=== PATIENT | female | born 1995 | race Caucasian/White ===

== ENCOUNTER 2021-09-30 12:30 | Emergency (ER) | payer BC, SELFPAY ==
[2021-09-30 12:41] VITALS: BP 122/57; PULSE 100; RESP 18; TEMP 36.6; O2SAT 98; BMI 43.0
--- NOTE | 2021-09-30 12:43 | DI.RAD.S_ITS ---
PROCEDURE: XR ELBOW RT MIN 3V INDICATIONS: fall right elbow pain TECHNIQUE: 3 views of the elbow were acquired. COMPARISON: None. FINDINGS: Bones: No fractures or dislocations. No suspicious bony lesions. Soft tissues: No elbow joint effusion. No suspicious soft tissue calcifications. IMPRESSION: Unremarkable right elbow radiographs Approved by: Leland Zuniga M.D. on 09/30/2021 at 12:04
--- NOTE | 2021-09-30 15:06 | ED.UPPEXIN ---
HPI - Extremity Injury (Upper) General Chief Complaint: Extremity Injury, Upper Stated Complaint: Right elbow injury yesterday Time Seen by Provider: 09/30/21 15:03 Source: patient Mode of arrival: Ambulatory History of Present Illness HPI narrative: Patient is a healthy 26-year-old female who presents with right elbow pain. She says that she hit on a door couple days ago. She has had some numbness and tingling in her ulnar nerve distribution of her 3rd 4th and 5th fingers. She has is able to flex and extend her arm. She has been doing ice and ibuprofen. I was a little bit better yesterday and then today it started up again she just wanted make sure that it is not broken. She denies any weakness in her hand. Related Data Allergies Allergy/AdvReac Type Severity Reaction Status Date / Time No Known Drug Allergies Allergy Verified 09/30/21 12:42 Review of Systems Review of Systems Narrative: GENERAL: Denies chills,fever HEENT: Denies throat pain RESPIRATORY: Denies dyspnea, cough, wheezing CARDIOVASCULAR: Denies chest pain, palpitations GASTROINTESTINAL: Denies nausea, vomiting MUSCULOSKELETAL: See HPI SKIN: No rash, no laceration, no pruritus NEUROLOGIC: Numbness tingling and ulnar nerve see HPI 8 point review of systems is negative except for those stated above and HPI Patient History tobacco type: vaping alcohol intake frequency: 3 or more drinks per day Substance Use Type: marijuana and crack/cocaine Exam Initial Vital Signs Initial Vital Signs: Vital Signs Temperature 98 F 09/30/21 12:41 Pulse Rate 100 H 09/30/21 12:41 Respiratory Rate 18 09/30/21 12:41 Blood Pressure 122/57 L 09/30/21 12:41 Pulse Oximetry 98 09/30/21 12:41 GENERAL: Alert well-appearing 26-year-old female CARDIOVASCULAR: peripheral pulses in tact, cap refill <2 sec RESPIRATORY: No respiratory distress, speaks in full sentences without difficulty EXTREMITIES: Normal range of motion, no clubbing or edema. Neurovascularly intact Right upper extremity he tender and olecranon on ulnar nerve. Hand good sensation/motor in radial median ulnar nerve distribution NEUROLOGICAL: Cranial nerves II through XII grossly intact. Normal gait and speech. SKIN: Warm, dry, no petechiae, no rashes or lesions. Course Orders Ordered: ED Orders 09/30/21 12:43 XR elbow RT min 3V Stat Vital Signs Vital signs: Vital Signs - 8 hr 09/30/21 12:41 Temperature 98 F Pulse Rate 100 H Respiratory Rate 18 Blood Pressure 122/57 L Pulse Oximetry 98 MDM - Extremity Injury (Upper) Imaging Data Extremity x-ray #1: Radiologist's Impression: Signed Patient: Dania Hinds MR#: [id number] : 1995 Acct:[id number] Age/Sex: 26 / F Date of Service: 09/30/21 Loc: ED Accession Number: [id number] ?? Procedure: XR elbow RT min 3V Ordering Provider: Rosio Barrow MD PROCEDURE:? XR ELBOW RT MIN 3V ? INDICATIONS:? fall right elbow pain ? TECHNIQUE:? 3 views of the elbow were acquired.? ? COMPARISON:? None. ? FINDINGS:? ? Bones:? No fractures or dislocations.? No suspicious bony lesions.? ? Soft tissues:? No elbow joint effusion.? No suspicious soft tissue calcifications.? ? ? IMPRESSION:? Unremarkable right elbow radiographs ? ? ? Approved by: Leland Zuniga M.D. on 09/30/2021 at 12:04? Discharge Plan Departure Patient Disposition: Home Clinical Impression: Ulnar nerve injury Instructions: Peripheral Neuropathy Activity Restrictions/Additional Instructions: *You have been diagnosed with ulnar nerve injury *What to do: At this time he may wear your sling however please be sure to take it out and move his shoulder and elbow multiple times a day. Elevate and ice. I anticipate this gets better with time. *Continue to take medications as directed Ibuprofen 600 mg every 6-8 hours if needed for [id number] pain *Follow up with your primary care provider in 2-3 days or call [phone] *Return to ER if you should have increasing pain weakness numbness tingling or any new, worsening or concerning symptoms
== END 2021-09-30 15:24 | disposition home or self-care (01) ==
PROVIDERS: Emergency Provider Emergency Medicine
DX: S44.01XA Injury of ulnar nerve at upper arm level, right arm, initial encounter (principal); W22.8XXA Striking against or struck by other objects, initial encounter
CPT/HCPCS: 73080; 99283

== ENCOUNTER 2021-10-24 10:57 | Emergency (ER) | payer BC, SELFPAY ==
[2021-10-24] VITALS (11 sets, daily range): BP systolic 134–147; BP diastolic 79–87; PULSE 95–115; RESP 16–31; TEMP 36.4; O2SAT 92–98; BMI 50.3
--- NOTE | 2021-10-24 11:04 | DI.RAD.S_ITS ---
PROCEDURE: XR CHEST 1V INDICATIONS: chest pain TECHNIQUE: One view of the chest was acquired. COMPARISON: None. FINDINGS: Surgical changes and devices: None. Lungs and pleura: Lungs are clear. No pleural effusions or pneumothorax. Mediastinum: Mediastinal contours appear normal. Heart size is normal. Bones and chest wall: No suspicious bony lesions. Overlying soft tissues appear unremarkable. Metallic foci can be seen overlying the patient. IMPRESSION: Portable chest within normal limits. Dictated by: Nishant Carlos M.D. on 10/24/2021 at 10:37 Approved by: Nishant Carlos M.D. on 10/24/2021 at 10:39
--- NOTE | 2021-10-24 11:26 | PC.NURSE ---
Pt reports SOB since 1630 yesterday. 96% on RA, RR of 32. Wheezes heard bilateral on upper lobes during exhalation. Reports recent cocaine and alcohol use. Also states, I left my menstrual disc in for over 24hrs. She reports some dizzy spells, fatigue, and chest pain. Prior tx include epi, albuterol and a steroid that were my friends.
[2021-10-24 11:28] LABS: COVID19 -Nasal RAPID Negative (Negative)
[2021-10-24 11:55] LABS: Add Manual Diff / Slide Review NO; Basophils Absolute Auto 100 /uL (0-100); Basophils Percent Auto 0.5 % (0-2); Eosinophils Absolute Auto 500 /uL (0-450); Eosinophils Percent Auto 5.2 % (2-4); Hemoglobin 13.4 g/dL (12.0-16.0); Lymphocytes Absolute Auto 1500 /uL (1100-4500); Lymphocytes Percent Auto 15.5 % (25-40); Mean Corpuscular HGB Conc 35.2 % (30-36); Mean Corpuscular Hemoglobin 30.3 PG (26-34); Mean Corpuscular Volume 86.2 fL (80-100); Monocytes Absolute Auto 700 /uL (0-900); Monocytes Percent Auto 7.6 % (3-14); Neutrophils Absolute Auto 6900 /uL (1500-7000); Neutrophils Percent Auto 71.2 % (50-75); Platelet Count 223 X10^3/uL (150-400); Red Blood Cell Count 4.41 X10^6/uL (4.0-5.2); Red Cell Distribution Width 12.8 % (11.6-14.8); White Blood Cell Count 9.7 X10^3/uL (4.5-11.0)
[2021-10-24 12:06] LABS: INR 1.2 (0.9-1.3); Prothrombin Time 13.3 SECONDS (10.1-12.7)
[2021-10-24 12:08] LABS: PTT Partial Thromboplastin Tim 30 SECONDS (26.4-36.2)
[2021-10-24 12:13] LABS: Alanine Aminotransferase 18 IU/L (<35); Albumin 4.3 g/dL (3.5-5.0); Albumin Globulin Ratio 1.4 (1.0-2.8); Alkaline Phosphatase 42 U/L (38-126); Aspartate Aminotransferase 23 IU/L (14-36); Bilirubin Total 0.9 mg/dL (0.2-1.3); Blood Urea Nitrogen 13 mg/dL (7-17); Carbon Dioxide 27 mmol/L (22-32); Chloride 103 mmol/L (98-107); Creatine Kinase 33 U/L (30-135); Estimated Glomerular Filt Rate > 60 mL/min (>60); Globulin 3.1 g/dL (1.7-4.1); Glucose 103 mg/dL (70-100); HEMOLYSIS < 15 (0-50); Lipase 51 U/L (23-300); Magnesium 1.9 mg/dL (1.6-2.3); Potassium 3.1 mmol/L (3.4-5.1); Sodium 139 mmol/L (137-145); Total Protein 7.4 g/dL (6.3-8.2)
--- NOTE | 2021-10-24 12:22 | ED_ITS ---
HPI - SOB/Dyspnea <DEBBI Guzman - Last Filed: 10/24/21 15:51> General Chief Complaint: Shortness of Breath/Dyspnea Stated Complaint: SOB x 2 days Time Seen by Provider: 10/24/21 12:06 Source: patient Mode of arrival: Ambulatory Limitations: no limitations History of Present Illness HPI Narrative: This is a 26-year-old female who presents to the emergency department complaining of shortness of breath, chest tightness after smoking meth and cocaine for the last few days. Patient states her last use was yesterday, she states she also injects meth but has not since yesterday. Patient denies any history of asthma, states that she has a history of frequent bronchitis and feels like she is wheezing. She denies fever but endorses chills. Patient endorses three days of dysuria, abnormal vaginal discharge, pelvic pressure and she states she not intercourse for three months or more. She states her last menses just finished. She denies any history of diabetes, denies any blood in her urine, endorses normal bowel movements recently. Related Data Previous Rx's Medication Instructions Recorded albuterol sulfate 90 mcg/actuation 1 inh INHALATION QID PRN #6.7 g 10/24/21 aerosol inhaler cephalexin 500 mg capsule 500 mg PO BID 5 Days #10 cap 10/24/21 hydroxyzine HCl 25 mg tablet 25 mg PO BID PRN #14 tab 10/24/21 inhalational spacing device (Khari #1 ea 10/24/21 Aerosol [place] Enhancer) metronidazole 500 mg tablet 500 mg PO BID 7 Days #14 tab 10/24/21 prednisone 20 mg tablet 40 mg PO DAILY 5 Days #10 tab 10/24/21 Allergies Allergy/AdvReac Type Severity Reaction Status Date / Time No Known Drug Allergies Allergy Verified 10/24/21 11:05 Review of Systems <DEBBI Guzman - Last Filed: 10/24/21 15:51> Review of Systems Narrative: General: denies fever, chills Head/Neck: denies headache, neck pain Eyes: denies visual changes, eye pain Cardio: denies chest pain, palpitations Respiratory: Endorses shortness of breath, cough and chest tightness GI: denies abdominal pain, nausea, vomiting, or diarrhea : Endorses dysuria, denies hematuria or flank pain MSK: denies new joint pain, muscle weakness or swelling Skin: denies rash, itching or wound Neuro: denies numbness, tingling, dizziness Patient History <DEBBI Guzman - Last Filed: 10/24/21 15:51> tobacco type: vaping alcohol intake frequency: 3 or more drinks per day Substance Use Type: marijuana and crack/cocaine Exam <DEBBI Guzman - Last Filed: 10/24/21 15:51> Narrative Exam Narrative: Independently reviewed vitals signs and nursing notes. General: cooperative, comfortable, in no acute distress, well groomed Head: atraumatic, symmetrical facial expressions Neck: supple Eyes: equal round and reactive, EOMI, conjunctiva normal Nose: nares patent, no rhinorrhea Mouth/Throat: moist mucus membranes Cardiovascular: regular rate and rhythm, no peripheral edema, warm extremities Respiratory: normal effort, inspiratory and expiratory wheezes, able to speak in complete sentences, nostridor, or rales. No retractions or tachypnea. GI: abdomen soft, nontender to palpation, nondistended, no masses, no exquisite tenderness with exam, without guarding or rebound. MSK: moves all extremities, neurovascularly intact, no weakness, normal tone Skin: brisk capillary refill, no rash, no erythema Neuro: normal speech and cognition, A&O x3 Psych: mental status is grossly normal, congruent mood, normal affect, pleasant and cooperative Initial Vital Signs Initial Vital Signs: Vital Signs Temperature 97.6 F 10/24/21 11:00 Pulse Rate 115 H 10/24/21 11:00 Respiratory Rate 18 10/24/21 11:00 Blood Pressure 141/87 H 10/24/21 11:00 Pulse Oximetry 96 10/24/21 11:00 <Natalie Dickson DO - Last Filed: 10/24/21 18:38> Initial Vital Signs Initial Vital Signs: Vital Signs Temperature 97.6 F 10/24/21 11:00 Pulse Rate 115 H 10/24/21 11:00 Respiratory Rate 18 10/24/21 11:00 Blood Pressure 141/87 H 10/24/21 11:00 Pulse Oximetry 96 10/24/21 11:00 Course <DEBBI Guzman - Last Filed: 10/24/21 15:51> Orders Ordered: ED Orders 10/24/21 11:04 XR chest 1V Stat EKG-12 Lead Stat 10/24/21 11:08 COVID19 -Nasal RAPID/Pre-Proc Stat 10/24/21 11:38 BNP [NT-proBNP (BNP-Adult 18+)] Stat Complete Blood Count AUTO DIFF Stat Comprehensive Metabolic Panel Stat Lipase Stat Magnesium Stat Partial Thromboplastin Time Stat Prothrombin Time INR Stat Troponin & CK Cardiac Panel Stat 10/24/21 12:24 RT Consult Eval and Treat NOW 10/24/21 12:45 Chlamydia Gonorrhea PCR -URINE Stat Ictotest Urine Stat Test Urine Stat Urine Microscopic Stat 10/24/21 13:03 Wet Prep Tric BV Veronica Stat Discontinued Medications Albuterol (Albuterol 2.5 Mg/3 Ml Neb (Adult)) 2.5 mg INH NOW ONE Stop: 10/24/21 12:57 Last Admin: 10/24/21 13:07 Dose: 2.5 mg Documented by: OBI Albuterol/Ipratropium (Albuterol/Ipratropium 3 Ml Ampul) 3 ml INH NOW ONE Stop: 10/24/21 12:19 Last Admin: 10/24/21 12:31 Dose: 3 ml Documented by: KAIN Hydroxyzine Pamoate (Hydroxyzine Pamoate 25 Mg Capsule) 25 mg PO NOW ONE Stop: 10/24/21 12:28 Last Admin: 10/24/21 13:10 Dose: 25 mg Documented by: KAIN Ketorolac Tromethamine (Ketorolac 30 Mg/Ml Vial) 15 mg IM NOW ONE Stop: 10/24/21 13:04 Last Admin: 10/24/21 13:10 Dose: 15 mg Documented by: KAIN Pantoprazole Sodium (Pantoprazole Dr 20 Mg Tablet) 20 mg PO NOW ONE Stop: 10/24/21 13:05 Last Admin: 10/24/21 13:10 Dose: 20 mg Documented by: KAIN Potassium Chloride (Potassium Chloride 20 Meq/15 Ml Udc) 40 meq PO NOW ONE Stop: 10/24/21 12:40 Last Admin: 10/24/21 13:11 Dose: 40 meq Documented by: KAIN Prednisone (Prednisone 20 Mg Tablet) 50 mg PO NOW ONE Stop: 10/24/21 12:19 Last Admin: 10/24/21 12:30 Dose: 50 mg Documented by: KAIN Vital Signs Vital signs: Vital Signs - 8 hr 10/24/21 11:00 10/24/21 11:06 10/24/21 11:30 Temperature 97.6 F Pulse Rate 115 H 111 H 99 H Respiratory Rate 18 31 H Blood Pressure 141/87 H Pulse Oximetry 96 98 97 10/24/21 12:00 10/24/21 12:24 10/24/21 12:30 Temperature Pulse Rate 97 H 95 H Respiratory Rate 22 24 Blood Pressure 145/79 H 147/79 H Pulse Oximetry 94 92 10/24/21 12:31 10/24/21 13:09 10/24/21 13:22 Temperature Pulse Rate 103 H Respiratory Rate Blood Pressure Pulse Oximetry 96 97 10/24/21 13:23 10/24/21 13:30 Temperature Pulse Rate 104 H 97 H Respiratory Rate 16 Blood Pressure 134/86 Pulse Oximetry <Natalie Dickson DO - Last Filed: 10/24/21 18:38> Orders Ordered: ED Orders 10/24/21 11:04 XR chest 1V Stat EKG-12 Lead Stat 10/24/21 11:08 COVID19 -Nasal RAPID/Pre-Proc Stat 10/24/21 11:38 BNP [NT-proBNP (BNP-Adult 18+)] Stat Complete Blood Count AUTO DIFF Stat Comprehensive Metabolic Panel Stat Lipase Stat Magnesium Stat Partial Thromboplastin Time Stat Prothrombin Time INR Stat Troponin & CK Cardiac Panel Stat 10/24/21 12:24 RT Consult Eval and Treat NOW 10/24/21 12:45 Chlamydia Gonorrhea PCR -URINE Stat Ictotest Urine Stat Test Urine Stat Urine Microscopic Stat 10/24/21 13:03 Wet Prep Tric BV Veronica Stat Discontinued Medications Albuterol (Albuterol 2.5 Mg/3 Ml Neb (Adult)) 2.5 mg INH NOW ONE Stop: 10/24/21 12:57 Last Admin: 10/24/21 13:07 Dose: 2.5 mg Documented by: OBI Albuterol/Ipratropium (Albuterol/Ipratropium 3 Ml Ampul) 3 ml INH NOW ONE Stop: 10/24/21 12:19 Last Admin: 10/24/21 12:31 Dose: 3 ml Documented by: KAIN Hydroxyzine Pamoate (Hydroxyzine Pamoate 25 Mg Capsule) 25 mg PO NOW ONE Stop: 10/24/21 12:28 Last Admin: 10/24/21 13:10 Dose: 25 mg Documented by: KAIN Ketorolac Tromethamine (Ketorolac 30 Mg/Ml Vial) 15 mg IM NOW ONE Stop: 10/24/21 13:04 Last Admin: 10/24/21 13:10 Dose: 15 mg Documented by: KAIN Pantoprazole Sodium (Pantoprazole Dr 20 Mg Tablet) 20 mg PO NOW ONE Stop: 10/24/21 13:05 Last Admin: 10/24/21 13:10 Dose: 20 mg Documented by: KAIN Potassium Chloride (Potassium Chloride 20 Meq/15 Ml Udc) 40 meq PO NOW ONE Stop: 10/24/21 12:40 Last Admin: 10/24/21 13:11 Dose: 40 meq Documented by: KAIN Prednisone (Prednisone 20 Mg Tablet) 50 mg PO NOW ONE Stop: 10/24/21 12:19 Last Admin: 10/24/21 12:30 Dose: 50 mg Documented by: KAIN Vital Signs Vital signs: Vital Signs - 8 hr 10/24/21 11:00 10/24/21 11:06 10/24/21 11:30 Temperature 97.6 F Pulse Rate 115 H 111 H 99 H Respiratory Rate 18 31 H Blood Pressure 141/87 H Pulse Oximetry 96 98 97 10/24/21 12:00 10/24/21 12:24 10/24/21 12:30 Temperature Pulse Rate 97 H 95 H Respiratory Rate 22 24 Blood Pressure 145/79 H 147/79 H Pulse Oximetry 94 92 10/24/21 12:31 10/24/21 13:09 10/24/21 13:22 Temperature Pulse Rate 103 H Respiratory Rate Blood Pressure Pulse Oximetry 96 97 10/24/21 13:23 10/24/21 13:30 Temperature Pulse Rate 104 H 97 H Respiratory Rate 16 Blood Pressure 134/86 Pulse Oximetry MDM - SOB/Dyspnea <DEBBI Guzman - Last Filed: 10/24/21 15:51> Lab Data Result diagrams: 10/24/21 11:38 10/24/21 11:38 Labs: Lab Results 10/24/21 10/24/21 10/24/21 Range/Units 11:08 11:38 11:38 WBC 9.7 (4.5-11.0) X10^3/uL RBC 4.41 (4.0-5.2) X10^6/uL Hgb 13.4 (12.0-16.0) g/dL Hct 38.0 (36-46) % MCV 86.2 (80-100) fL MCH 30.3 (26-34) PG MCHC 35.2 (30-36) % RDW 12.8 (11.6-14.8) % Plt Count 223 (150-400) X10^3/uL Neut % (Auto) 71.2 (50-75) % Lymph % (Auto) 15.5 L (25-40) % Story % (Auto) 7.6 (3-14) % Eos % (Auto) 5.2 H (2-4) % Baso % (Auto) 0.5 (0-2) % Neut # (Auto) 6900 (6634-8848) /uL Lymph # (Auto) 1500 (4550-6416) /uL Story # (Auto) 700 (0-900) /uL Eos # (Auto) 500 H (0-450) /uL Baso # (Auto) 100 (0-100) /uL PT 13.3 H (10.1-12.7) SECONDS INR 1.2 (0.9-1.3) APTT 30 (26.4-36.2) SECONDS Sodium (137-145) mmol/L Potassium (3.4-5.1) mmol/L Chloride (98-107) mmol/L Carbon Dioxide (22-32) mmol/L BUN (7-17) mg/dL Creatinine (0.52-1.04) mg/dL Estimated GFR (>60) mL/min BUN/Creatinine Ratio (6-22) Glucose (70-100) mg/dL Calcium (8.4-10.2) mg/dL Magnesium (1.6-2.3) mg/dL Total Bilirubin (0.2-1.3) mg/dL AST (14-36) IU/L ALT (<35) IU/L Alkaline Phosphatase (38-126) U/L Total Creatine Kinase (30-135) U/L CK-MB (CK-2) CK-MB (CK-2) Rel Index Troponin I (0.01-0.034) ng/mL NT-Pro-B Natriuret Pep (<125) pg/mL Total Protein (6.3-8.2) g/dL Albumin (3.5-5.0) g/dL Globulin (1.7-4.1) g/dL Albumin/Globulin Ratio (1.0-2.8) Lipase (23-300) U/L Ur Bilirubin Confirm (Negative) Urine RBC (0-5/HPF) Urine WBC (0-5/HPF) Ur Squamous Epith Cells (0-5/HPF) Urine Bacteria (None) Urine Mucus (Negative) Ur Culture Indicated? Urine Test (Negative) Ur Chlamydia DNA (PCR) SARS-CoV-2 (PCR) Negative (Negative) N gonorrhoeae DNA (PCR) 10/24/21 10/24/21 10/24/21 Range/Units 11:38 11:38 12:45 WBC (4.5-11.0) X10^3/uL RBC (4.0-5.2) X10^6/uL Hgb (12.0-16.0) g/dL Hct (36-46) % MCV (80-100) fL MCH (26-34) PG MCHC (30-36) % RDW (11.6-14.8) % Plt Count (150-400) X10^3/uL Neut % (Auto) (50-75) % Lymph % (Auto) (25-40) % Story % (Auto) (3-14) % Eos % (Auto) (2-4) % Baso % (Auto) (0-2) % Neut # (Auto) (4613-6314) /uL Lymph # (Auto) (3326-6417) /uL Story # (Auto) (0-900) /uL Eos # (Auto) (0-450) /uL Baso # (Auto) (0-100) /uL PT (10.1-12.7) SECONDS INR (0.9-1.3) APTT (26.4-36.2) SECONDS Sodium 139 (137-145) mmol/L Potassium 3.1 L (3.4-5.1) mmol/L Chloride 103 (98-107) mmol/L Carbon Dioxide 27 (22-32) mmol/L BUN 13 (7-17) mg/dL Creatinine 0.62 (0.52-1.04) mg/dL Estimated GFR > 60 (>60) mL/min BUN/Creatinine Ratio 21.0 (6-22) Glucose 103 H (70-100) mg/dL Calcium 9.0 (8.4-10.2) mg/dL Magnesium 1.9 (1.6-2.3) mg/dL Total Bilirubin 0.9 (0.2-1.3) mg/dL AST 23 (14-36) IU/L ALT 18 (<35) IU/L Alkaline Phosphatase 42 (38-126) U/L Total Creatine Kinase 33 (30-135) U/L CK-MB (CK-2) TNP CK-MB (CK-2) Rel Index TNP Troponin I < 0.012 (0.01-0.034) ng/mL NT-Pro-B Natriuret Pep 52 (<125) pg/mL Total Protein 7.4 (6.3-8.2) g/dL Albumin 4.3 (3.5-5.0) g/dL Globulin 3.1 (1.7-4.1) g/dL Albumin/Globulin Ratio 1.4 (1.0-2.8) Lipase 51 (23-300) U/L Ur Bilirubin Confirm Negative (Negative) Urine RBC 5-10/hpf H (0-5/HPF) Urine WBC 1-5/hpf (0-5/HPF) Ur Squamous Epith Cells 5-10 /hpf H (0-5/HPF) Urine Bacteria Many (>30) H (None) Urine Mucus 2+ H (Negative) Ur Culture Indicated? Cult not indicated Urine Test (Negative) Ur Chlamydia DNA (PCR) SARS-CoV-2 (PCR) (Negative) N gonorrhoeae DNA (PCR) 10/24/21 10/24/21 Range/Units 12:45 12:45 WBC (4.5-11.0) X10^3/uL RBC (4.0-5.2) X10^6/uL Hgb (12.0-16.0) g/dL Hct (36-46) % MCV (80-100) fL MCH (26-34) PG MCHC (30-36) % RDW (11.6-14.8) % Plt Count (150-400) X10^3/uL Neut % (Auto) (50-75) % Lymph % (Auto) (25-40) % Story % (Auto) (3-14) % Eos % (Auto) (2-4) % Baso % (Auto) (0-2) % Neut # (Auto) (2819-5966) /uL Lymph # (Auto) (1864-3947) /uL Story # (Auto) (0-900) /uL Eos # (Auto) (0-450) /uL Baso # (Auto) (0-100) /uL PT (10.1-12.7) SECONDS INR (0.9-1.3) APTT (26.4-36.2) SECONDS Sodium (137-145) mmol/L Potassium (3.4-5.1) mmol/L Chloride (98-107) mmol/L Carbon Dioxide (22-32) mmol/L BUN (7-17) mg/dL Creatinine (0.52-1.04) mg/dL Estimated GFR (>60) mL/min BUN/Creatinine Ratio (6-22) Glucose (70-100) mg/dL Calcium (8.4-10.2) mg/dL Magnesium (1.6-2.3) mg/dL Total Bilirubin (0.2-1.3) mg/dL AST (14-36) IU/L ALT (<35) IU/L Alkaline Phosphatase (38-126) U/L Total Creatine Kinase (30-135) U/L CK-MB (CK-2) CK-MB (CK-2) Rel Index Troponin I (0.01-0.034) ng/mL NT-Pro-B Natriuret Pep (<125) pg/mL Total Protein (6.3-8.2) g/dL Albumin (3.5-5.0) g/dL Globulin (1.7-4.1) g/dL Albumin/Globulin Ratio (1.0-2.8) Lipase (23-300) U/L Ur Bilirubin Confirm (Negative) Urine RBC (0-5/HPF) Urine WBC (0-5/HPF) Ur Squamous Epith Cells (0-5/HPF) Urine Bacteria (None) Urine Mucus (Negative) Ur Culture Indicated? Urine Test Negative (Negative) Ur Chlamydia DNA (PCR) Not detected SARS-CoV-2 (PCR) (Negative) N gonorrhoeae DNA (PCR) Not detected Urine Dip Bedside Urine Glucose Negative Bedside Urine Bilirubin + 1 Bedside Urine Ketone +/- 5 Urine Specific [place] 1.025 Bedside Urine Occult Blood +++ Bedside Urine pH 6 Bedside Urine Protein + 30 Bedside Urine Urobilinogen +/- 1mg Bedside Urine Nitrite - Negative Bedside Urine Leukocytes + 70 Esterase Imaging Data Chest x-ray: Radiologist's Impression: PROCEDURE:? XR CHEST 1V ? INDICATIONS:? chest pain ? TECHNIQUE:? One view of the chest was acquired.? ? COMPARISON:? None. ? FINDINGS:? ? Surgical changes and devices:? None.? ? Lungs and pleura:? Lungs are clear.? No pleural effusions or pneumothorax.? ? Mediastinum:? Mediastinal contours appear normal.? Heart size is normal.? ? Bones and chest wall:? No suspicious bony lesions.? Overlying soft tissues appear unremarkable.? Metallic foci can be seen overlying the patient. ? ? IMPRESSION:? ? Portable chest within normal limits. ? ? ? Dictated by: Nishant Carlos M.D. on 10/24/2021 at 10:37 ? ? Approved by: Nishant Carlos M.D. on 10/24/2021 at 10:39 ? [facility] Narrative Medical decision making narrative: This is a 26-year-old female who presents to the emergency department with mult iple complaints including shortness of breath for the last two days, cough, dysuria, and abnormal vaginal discharge. Patient's UA shows leukocytes, blood, ketones, it was sent for microscopy and urine culture which is pending. Microscopy shows bacteria, rbc's, with small amount of white blood cells and is pending for culture, urine gonorrhea and chlamydia is pending. Chest x-ray is without any acute cardiopulmonary abnormalities, no pleural effusion or pneumothorax, patient was given a DuoNeb, wheezing improved but she still had expiratory wheezes scattered bilaterally, was given an albuterol inhaler following this and had almost full improvement in her wheezing. Patient endorses smoking and injecting methamphetamine, and smoking cocaine within the last two days. Recommend patient avoid smoking substances with her respiratory symptoms, lab work overall is grossly unremarkable but does show hypokalemia with a potassium of 3.1, troponin was negative, liver enzymes were within normal ranges, no leukocytosis. Patient is tolerating p.o. without nausea or vomiting. She was treated for acute asthma exacerbation with 50 mg of prednisone, two doses of albuterol, one ipratropium, hydroxyzine for her symptoms, ketorolac for her headache, pantoprazole for NSAIDs with steroids and potassium to for GI prophylaxis. Patient was started on Flagyl p.o. b.i.d. for bacterial vaginosis x7 days, she was prescribed cephalexin 500 mg p.o. b.i.d. for five days for cystitis. Will follow-up on her gonorrhea and chlamydia, patient is nontoxic appearing today without any fever, hypoxia, chest pain, vomiting. She is given strict return precautions. No peritoneal signs on abdominal exam. Patient remains p.o. tolerant. Serial abdominal exam without increase in abdominal pain. Given history and exam, low suspicion for acute abdominal process, such as acute cholecystitis, pancreatitis, perforated viscus, atypical appendicitis, colitis, diverticulitis or torsion. Extensive conversation about ER return precautions and need for close follow-up. Patient is appropriate and amenable to discharge home. Vital signs are stable on repeat examination is unremarkable. Patient has been informed of results. Patient has been given strict return to ER precautions for any new or worsening symptoms. Patient understands to follow up closely with outpatient providers as instructed. Patient understands plan and agrees to discharge home. All questions and concerns answered at this time. <Natalie Dickson, DO - Last Filed: 10/24/21 18:38> Lab Data Labs: Lab Results 10/24/21 10/24/21 10/24/21 Range/Units 11:08 11:38 11:38 WBC 9.7 (4.5-11.0) X10^3/uL RBC 4.41 (4.0-5.2) X10^6/uL Hgb 13.4 (12.0-16.0) g/dL Hct 38.0 (36-46) % MCV 86.2 (80-100) fL MCH 30.3 (26-34) PG MCHC 35.2 (30-36) % RDW 12.8 (11.6-14.8) % Plt Count 223 (150-400) X10^3/uL Neut % (Auto) 71.2 (50-75) % Lymph % (Auto) 15.5 L (25-40) % Story % (Auto) 7.6 (3-14) % Eos % (Auto) 5.2 H (2-4) % Baso % (Auto) 0.5 (0-2) % Neut # (Auto) 6900 (2946-6662) /uL Lymph # (Auto) 1500 (0130-9760) /uL Story # (Auto) 700 (0-900) /uL Eos # (Auto) 500 H (0-450) /uL Baso # (Auto) 100 (0-100) /uL PT 13.3 H (10.1-12.7) SECONDS INR 1.2 (0.9-1.3) APTT 30 (26.4-36.2) SECONDS Sodium (137-145) mmol/L Potassium (3.4-5.1) mmol/L Chloride (98-107) mmol/L Carbon Dioxide (22-32) mmol/L BUN (7-17) mg/dL Creatinine (0.52-1.04) mg/dL Estimated GFR (>60) mL/min BUN/Creatinine Ratio (6-22) Glucose (70-100) mg/dL Calcium (8.4-10.2) mg/dL Magnesium (1.6-2.3) mg/dL Total Bilirubin (0.2-1.3) mg/dL AST (14-36) IU/L ALT (<35) IU/L Alkaline Phosphatase (38-126) U/L Total Creatine Kinase (30-135) U/L CK-MB (CK-2) CK-MB (CK-2) Rel Index Troponin I (0.01-0.034) ng/mL NT-Pro-B Natriuret Pep (<125) pg/mL Total Protein (6.3-8.2) g/dL Albumin (3.5-5.0) g/dL Globulin (1.7-4.1) g/dL Albumin/Globulin Ratio (1.0-2.8) Lipase (23-300) U/L Ur Bilirubin Confirm (Negative) Urine RBC (0-5/HPF) Urine WBC (0-5/HPF) Ur Squamous Epith Cells (0-5/HPF) Urine Bacteria (None) Urine Mucus (Negative) Ur Culture Indicated? Urine Test (Negative) Ur Chlamydia DNA (PCR) SARS-CoV-2 (PCR) Negative (Negative) N gonorrhoeae DNA (PCR) 10/24/21 10/24/21 10/24/21 Range/Units 11:38 11:38 12:45 WBC (4.5-11.0) X10^3/uL RBC (4.0-5.2) X10^6/uL Hgb (12.0-16.0) g/dL Hct (36-46) % MCV (80-100) fL MCH (26-34) PG MCHC (30-36) % RDW (11.6-14.8) % Plt Count (150-400) X10^3/uL Neut % (Auto) (50-75) % Lymph % (Auto) (25-40) % Story % (Auto) (3-14) % Eos % (Auto) (2-4) % Baso % (Auto) (0-2) % Neut # (Auto) (9961-3659) /uL Lymph # (Auto) (7475-3288) /uL Story # (Auto) (0-900) /uL Eos # (Auto) (0-450) /uL Baso # (Auto) (0-100) /uL PT (10.1-12.7) SECONDS INR (0.9-1.3) APTT (26.4-36.2) SECONDS Sodium 139 (137-145) mmol/L Potassium 3.1 L (3.4-5.1) mmol/L Chloride 103 (98-107) mmol/L Carbon Dioxide 27 (22-32) mmol/L BUN 13 (7-17) mg/dL Creatinine 0.62 (0.52-1.04) mg/dL Estimated GFR > 60 (>60) mL/min BUN/Creatinine Ratio 21.0 (6-22) Glucose 103 H (70-100) mg/dL Calcium 9.0 (8.4-10.2) mg/dL Magnesium 1.9 (1.6-2.3) mg/dL Total Bilirubin 0.9 (0.2-1.3) mg/dL AST 23 (14-36) IU/L ALT 18 (<35) IU/L Alkaline Phosphatase 42 (38-126) U/L Total Creatine Kinase 33 (30-135) U/L CK-MB (CK-2) TNP CK-MB (CK-2) Rel Index TNP Troponin I < 0.012 (0.01-0.034) ng/mL NT-Pro-B Natriuret Pep 52 (<125) pg/mL Total Protein 7.4 (6.3-8.2) g/dL Albumin 4.3 (3.5-5.0) g/dL Globulin 3.1 (1.7-4.1) g/dL Albumin/Globulin Ratio 1.4 (1.0-2.8) Lipase 51 (23-300) U/L Ur Bilirubin Confirm Negative (Negative) Urine RBC 5-10/hpf H (0-5/HPF) Urine WBC 1-5/hpf (0-5/HPF) Ur Squamous Epith Cells 5-10 /hpf H (0-5/HPF) Urine Bacteria Many (>30) H (None) Urine Mucus 2+ H (Negative) Ur Culture Indicated? Cult not indicated Urine Test (Negative) Ur Chlamydia DNA (PCR) SARS-CoV-2 (PCR) (Negative) N gonorrhoeae DNA (PCR) 10/24/21 10/24/21 Range/Units 12:45 12:45 WBC (4.5-11.0) X10^3/uL RBC (4.0-5.2) X10^6/uL Hgb (12.0-16.0) g/dL Hct (36-46) % MCV (80-100) fL MCH (26-34) PG MCHC (30-36) % RDW (11.6-14.8) % Plt Count (150-400) X10^3/uL Neut % (Auto) (50-75) % Lymph % (Auto) (25-40) % Story % (Auto) (3-14) % Eos % (Auto) (2-4) % Baso % (Auto) (0-2) % Neut # (Auto) (7246-6849) /uL Lymph # (Auto) (8134-5603) /uL Story # (Auto) (0-900) /uL Eos # (Auto) (0-450) /uL Baso # (Auto) (0-100) /uL PT (10.1-12.7) SECONDS INR (0.9-1.3) APTT (26.4-36.2) SECONDS Sodium (137-145) mmol/L Potassium (3.4-5.1) mmol/L Chloride (98-107) mmol/L Carbon Dioxide (22-32) mmol/L BUN (7-17) mg/dL Creatinine (0.52-1.04) mg/dL Estimated GFR (>60) mL/min BUN/Creatinine Ratio (6-22) Glucose (70-100) mg/dL Calcium (8.4-10.2) mg/dL Magnesium (1.6-2.3) mg/dL Total Bilirubin (0.2-1.3) mg/dL AST (14-36) IU/L ALT (<35) IU/L Alkaline Phosphatase (38-126) U/L Total Creatine Kinase (30-135) U/L CK-MB (CK-2) CK-MB (CK-2) Rel Index Troponin I (0.01-0.034) ng/mL NT-Pro-B Natriuret Pep (<125) pg/mL Total Protein (6.3-8.2) g/dL Albumin (3.5-5.0) g/dL Globulin (1.7-4.1) g/dL Albumin/Globulin Ratio (1.0-2.8) Lipase (23-300) U/L Ur Bilirubin Confirm (Negative) Urine RBC (0-5/HPF) Urine WBC (0-5/HPF) Ur Squamous Epith Cells (0-5/HPF) Urine Bacteria (None) Urine Mucus (Negative) Ur Culture Indicated? Urine Test Negative (Negative) Ur Chlamydia DNA (PCR) Not detected SARS-CoV-2 (PCR) (Negative) N gonorrhoeae DNA (PCR) Not detected Urine Dip Bedside Urine Glucose Negative Bedside Urine Bilirubin + 1 Bedside Urine Ketone +/- 5 Urine Specific Marshall 1.025 Bedside Urine Occult Blood +++ Bedside Urine pH 6 Bedside Urine Protein + 30 Bedside Urine Urobilinogen +/- 1mg Bedside Urine Nitrite - Negative Bedside Urine Leukocytes + 70 Esterase ECG Data Attestation: I personally reviewed and interpreted this ECG as follows: Interpretation: Sinus rhythm, rate of 97 TX 128 QRS of 92 and QTC 441. No acute ST elevation depression noted. Discharge Plan Departure Patient Disposition: Home Clinical Impression: Acute dyspnea, Wheezing, Bacterial vaginosis Acute cystitis Qualifiers: Hematuria presence: with hematuria Qualified Code(s): N30.01 - Acute cystitis with hematuria Instructions: Bacterial Vaginosis, Asthma -- Adult, DI for Cough -- Adult, DI for Urinary Tract Infection (UTI) Activity Restrictions/Additional Instructions: *You have been diagnosed with an asthma exacerbation without prior diagnosis of asthma. This is likely due to your for digestion, cough, and. For your shortness of breath and chest tightness, have prescribed for you an albuterol inhaler with a spacer, a steroid to take once a day for the next five days, an albuterol inhaler to use every 4 hours or as needed for shortness of breath, chest tightness, and wheezing. Have also given you hydroxyzine to take as needed for anxiety, chest tightness, it may might help reduce some nasal congestion as well. Your gonorrhea and chlamydia tests are pending, I have called in an antibiotic for you to treat bacterial vaginosis, please schedule follow-up appointment with your primary care provider if you have ongoing symptoms at the end of your prescription, you may need to extend the course if it is not better yet. Please avoid smoking meth or cocaine, these are coccyx to her lungs, and trigger asthma exacerbation for you. This causes you to have inflammation in your airway, and you do not exchange oxygen as well. Please use Claritin if you have seasonal allergies, this will help it is you from having an exacerbation of your asthma as well. Gonorrhea and chlamydia test is positive, and if so, we will send another prescription to your pharmacy. I hope you feel better soon. *What to do: *Please continue to take your regular medications as directed. [ x] New medication prescriptions sent to your pharmacy: [Shonna Davis ] [ ] New medication written as a paper prescription [ ] No new medications given *Please follow up with your primary care provider in 2-3 days, call for an appointment. Let them know you were seen in the Emergency Department and that we asked that you be seen for follow-up. We will electronically transmit a record of today's note if your PCP is in our system *If you do not have a primary care provider please contact [phone] to establish care with one of the [facility] primary care providers. *Return to Emergency Department if you should have any new, worsening or concerning symptoms, such as [fever greater than 101F, chills, worsening pain, persistent vomiting or other bothersome symptoms] Prescriptions: New prednisone 20 mg tablet 40 mg PO DAILY 5 Days Qty: 10 0RF metronidazole 500 mg tablet 500 mg PO BID 7 Days Qty: 14 0RF albuterol sulfate 90 mcg/actuation HFA aerosol inhaler 1 inh inhalation QID PRN (Reason: shortness of breath or wheezing) Qty: 6.7 0RF (DME) Khari Aerosol [place] Enhancer Spacer See Rx Instructions .Route Qty: 1 0RF Rx Instructions: As directed hydroxyzine HCl 25 mg tablet 25 mg PO BID PRN (Reason: anxiety) Qty: 14 0RF cephalexin 500 mg capsule 500 mg PO BID 5 Days Qty: 10 0RF <Natalie Dickson, DO - Last Filed: 10/24/21 18:38> Cosign ED Attending Cosignature Attestation: I was immediately available in the department for consultation. Documentation has been reviewed.
[2021-10-24 12:23] LABS: Troponin I < 0.012 ng/mL (0.01-0.034)
[2021-10-24] MEDS: predniSONE 20 MG TABLET 50 MG PO (12:30)
[2021-10-24] MEDS: ALBUTEROL/IPRATROPIUM 3 ML AMPUL INH (12:31)
[2021-10-24 12:33] LABS: NT-proBNP (BNP-Adult 18+) 52 pg/mL (<125)
[2021-10-24] MEDS: ALBUTEROL 2.5 MG/3 ML NEB (ADULT) INH (13:07)
[2021-10-24] MEDS: hydrOXYzine pamoate 25 MG CAPSULE PO (13:10)
[2021-10-24] MEDS: PANTOPRAZOLE DR 20 MG TABLET PO (13:10)
[2021-10-24] MEDS: KETOROLAC 30 MG/ML VIAL 15 MG IM (13:10)
[2021-10-24] MEDS: POTASSIUM CHLORIDE 20 MEQ/15 ML UDC 40 MEQ PO (13:11)
[2021-10-24 13:17] LABS: Pregnancy Test Urine Negative (Negative)
[2021-10-24 13:44] LABS: Bacteria Urine Many (>30); Ictotest Urine Negative (Negative); Mucus Urine 2+ (Negative); RBC Urine 5-10/HPF (0-5/HPF); Squamous Epithelial Cell Urine 5-10 /HPF (0-5/HPF); WBC Urine 1-5/HPF (0-5/HPF)
[2021-10-24 13:45] LABS: Culture Indicated Urine Cult Not Indicated
[2021-10-24 15:17] LABS: Urine N gonorrhoeae NOT DETECTED
[2021-10-24 16:28] LABS: Urine Chlamydia NOT DETECTED
== END 2021-10-24 14:07 | disposition home or self-care (01) ==
PROVIDERS: Emergency Medicine; Emergency Provider Nurse Practitioner Critical Care Medicine
DX: R06.00 Dyspnea, unspecified (principal); R06.2 Wheezing; N76.0 Acute vaginitis; N30.01 Acute cystitis with hematuria; F14.90 Cocaine use, unspecified, uncomplicated; F15.90 Other stimulant use, unspecified, uncomplicated; R07.9 Chest pain, unspecified
CPT/HCPCS: 36415; 71045; 80053; 81003; 81015; 81025; 82550; 83690; 83735; 83880; 84484; 85025; 85610; 85730; 87210; 87491; 87591; 87635; 93005; 93010; 94640; 96372; 99284; C9803; J1885; J7613

== ENCOUNTER → 2021-12-25 17:53 | Outpatient (CLI) | payer BC, SELFPAY | PROVIDERS: Visit Provider Physician Assistant | DX: R10.9 Unspecified abdominal pain (principal) | CPT/HCPCS: 87086 ==

== ENCOUNTER 2024-08-07 07:36 | Emergency (ER) | payer OTHER, SELFPAY ==
[2024-08-07 07:46] VITALS: BP 143/73; PULSE 84; RESP 16; TEMP 37.1; O2SAT 100; BMI 31.7
--- NOTE | 2024-08-07 07:48 | DI.RAD.S_ITS ---
PROCEDURE: XR WRIST LT MIN 3V INDICATIONS: pain swelling L wrist TECHNIQUE: 4 views of the wrist were acquired. COMPARISON: None. FINDINGS: Bones: No fractures or dislocations. No suspicious bony lesions. Soft tissues: No suspicious soft tissue calcifications. IMPRESSION: No acute bony abnormality. Dictated by: Akil Nj M.D. on 08/07/2024 at 8:26 Approved by: Akil Nj M.D. on 08/07/2024 at 8:28
[2024-08-07 09:06] VITALS: BP 124/78; PULSE 94; RESP 16; O2SAT 100
--- NOTE | 2024-08-07 09:07 | PC.NURSE ---
Pt denies injury,having left wrist pain for 2 days.
--- NOTE | 2024-08-07 09:30 | ED_ITS ---
HPI - Extremity Injury (Upper) General Chief Complaint: Extremity Injury, Upper Stated Complaint: Left wrist pain Time Seen by Provider: 08/07/24 09:05 History of Present Illness HPI narrative: 28-year-old female who is right-handed complains of 3 days duration nontraumatic left wrist pain, no fevers or chills, no specific activity or injury recalled, no history of gout or pseudogout, no history of lupus or rheumatoid arthritis. Had similar symptoms right wrist months ago lead lasted for a couple of days. She does frequent painting but with her right hand. No lifting or falls or injuries or new activities. No numbness or tingling to her left hand or fingers. No proximal left arm pain or swelling. Related Data Previous Rx's Medication Instructions Recorded albuterol sulfate 90 mcg/actuation 1 inh inhalation QID PRN shortness 10/24/21 aerosol inhaler of breath or wheezing #6.7 grams hydroxyzine HCl 25 mg tablet 25 mg PO BID PRN anxiety #14 tabs 10/24/21 inhalational spacing device (Khari #1 ea 10/24/21 Aerosol [place] Enhancer spacer) Allergies Allergy/AdvReac Type Severity Reaction Status Date / Time No Known Drug Allergies Allergy Verified 10/24/21 11:05 Patient History Social History Smoking Status: Never smoker Smoking Status: Never smoker tobacco type: vaping alcohol intake frequency: 3 or more drinks per day Exam Narrative Exam Narrative: GENERAL: Well-developed patient, in mild distress. HEAD: Atraumatic. Normocephalic. EYES: Pupils equal round and reactive. Extraocular motions intact. No scleral icterus. No injection or drainage. ENT: Nose without bleeding, purulent drainage. Throat without erythema, tonsillar hypertrophy or exudate. Airway patent. NECK: Trachea midline. Non tender CARDIOVASCULAR: Regular rate and rhythm without murmurs, gallops, or rubs. RESPIRATORY: Clear to auscultation. Breath sounds equal bilaterally. No wheezes, rales, or rhonchi. GASTROINTESTINAL: Abdomen soft, non-tender, nondistended. EXTREMITIES: No edema or joint tenderness. BACK: Nontender without deformity or crepitance. No flank tenderness. NEURO: AOx3. Motor functions grossly nonfocal SKIN: No rash or erythema of visible areas Initial Vital Signs Initial Vital Signs: Vital Signs Temperature 98.7 F 08/07/24 07:46 Pulse Rate 84 08/07/24 07:46 Respiratory Rate 16 08/07/24 07:46 Blood Pressure 143/73 H 08/07/24 07:46 Pulse Oximetry 100 08/07/24 07:46 Oxygen Delivery Method Room Air 08/07/24 07:46 Course Orders Ordered: ED Orders 08/07/24 07:48 XR wrist LT min 3V Stat Vital Signs Vital signs: Vital Signs - 8 hr 08/07/24 07:46 08/07/24 09:06 Temperature 98.7 F Pulse Rate 84 94 H Respiratory Rate 16 16 Blood Pressure 143/73 H 124/78 Pulse Oximetry 100 100 Oxygen Delivery Method Room Air Room Air MDM - Extremity Injury (Upper) Imaging Data Extremity x-ray #1: Radiologist's Impression: [address] [address] XRay Report Signed Patient: Dania Hinds MR#: [id number] : 1995 Acct:[id number] Age/Sex: 28 / F Date of Service: 08/07/24 Loc: ED Accession Number: [id number] Procedure: XR wrist LT min 3V Ordering Provider: Trevor Washington MD PROCEDURE: XR WRIST LT MIN 3V INDICATIONS: pain swelling L wrist TECHNIQUE: 4 views of the wrist were acquired. COMPARISON: None. FINDINGS: Bones: No fractures or dislocations. No suspicious bony lesions. Soft tissues: No suspicious soft tissue calcifications. IMPRESSION: No acute bony abnormality. Dictated by: Akil Nj M.D. on 08/07/2024 at 8:26 Approved by: Akil Nj M.D. on 08/07/2024 at 8:28 [facility] Narrative Medical decision making narrative: 28-year-old female with nontraumatic left wrist pain for the last 3 days, no fever, no warmth or tenderness or swelling or deformity. X-rays from triage ordered, no acute fractures or arthritic changes noted, see radiology report. Trial of [id number] NSAID, ice elevation, volar wrist splint. Recheck with PCP if symptoms persist next few days. Return precautions. Discharged home. Discharge Plan Departure Patient Disposition: Home Clinical Impression: Left wrist pain Instructions: DI for Wrist Sprain Activity Restrictions/Additional Instructions: Left wrist pain without obvious trauma or new activities, right-handed redness noted. No warmth or deformity or significant tenderness, range of motion seems good. X-ray of the left wrist obtained from triage, no acute fractures or arthritic changes noted per radiologist's interpretation report. Trial of [id number] ibuprofen and rest and elevation and icing as needed. Trial of Velcro wrist splint for now. Recheck with your regular doctor if symptoms not improved later this week. Return earlier to this/nearest emergency department for any change worsening symptoms or any concerns prior. Thank you allowing our team to evaluate you today. Prescriptions: No Action albuterol sulfate 90 mcg/actuation HFA aerosol inhaler 1 inh inhalation QID PRN (Reason: shortness of breath or wheezing) Qty: 6.7 0RF (DME) Khari Aerosol [place] Enhancer Spacer See Rx Instructions .Route Qty: 1 0RF Rx Instructions: As directed hydroxyzine HCl 25 mg tablet 25 mg PO BID PRN (Reason: anxiety) Qty: 14 0RF Referrals: Miscellaneous,Doctor, MD [Primary Care Provider] - Stand Alone Forms: Patient Portal/API/Survey
== END 2024-08-07 09:56 | disposition home or self-care (01) ==
PROVIDERS: Emergency Provider Emergency Medicine
DX: M25.532 Pain in left wrist (principal)
CPT/HCPCS: 73110; 99283